=== PATIENT | male | born 2000 | race African-American/Black ===

== ENCOUNTER → 2023-12-03 | Emergency (ER) | payer OTHER ==
[~2023-12-03] MED LIST: KETOROLAC 30 MG/ML INJ ONE; NA CHLORIDE 0.9% 1,000 ML ONE
--- NOTE | 2023-12-03 13:26 | RAD REPORT ---
EXAM DESCRIPTION: CT - Stone Protocol - 12/03/2023 1:15 pm CLINICAL HISTORY: Flank pain. FLANK PAIN COMPARISON: No comparisons TECHNIQUE: Axial images were obtained without oral or IV contrast. Lack of contrast limits solid org an and vascular assessment. The chmoa-wc-tzuh spans the entirety of the system partially obscuring uppermost abdomen and lung bases. Coronal reformatted images were obtained and reviewed. All CT scans are performed using dose optimization technique as appropriate and may include automated exposure control or mA/KV adjustment according to patient size. FINDINGS: The lower lung santos are clear. Imaged portions of the liver and spleen show no suspicious findings on non-contrast imaging. The panc reas and adrenal glands are normal. No pathologic lymphadenopathy in the abdomen or pelvis. No urinary tract stones or obstructive uropathy. No bowel obstruction, free air, free fluid or abscess. Normal appendix noted. No significant bony abnormality. IMPRESSION: No urinary tract stones or obstructive uropathy.
[2023-12-03 13:35] LABS: Absolute Lymphocytes (CBC) 1.6 K/uL (0.7-4.9); Lymphocytes % 22.8 % (15.3-44.8); MCV 78.6 fL (80-100); MPV 8.5 fL (7.6-11.3); Platelets 306 thou/uL (152-406); RBC Red Blood Cell Count 4.96 M/uL (4.33-5.43); Specific Gravity 1.016 (1.005-1.030); Urine Bilirubin NEGATIVE (Negative); Urine Blood Negative (Negative); Urine Clarity Clear (Clear); Urine Color Light-Yellow (Yellow); Urine Glucose NEGATIVE (Negative); Urine Protein NEGATIVE (Negative); Urine Urobilinogen Normal (Normal); Urine pH 6.5 (5.0-7.0)
[2023-12-03 14:01] LABS: Albumin 3.6 g/dL (3.4-5.0); Bilirubin Total 0.4 mg/dL (0.2-1.0); Potassium 4.1 mEq/L (3.5-5.1); Protein, Total 8.6 g/dL (6.4-8.2)
--- NOTE | 2023-12-03 14:24 | ER ---
Nurse's Notes [facility] Name: Abhinav Metzger Age: 22 yrs Sex: Male : 2000 Arrival Date: 12/03/2023 Time: 12:48 Bed 10 Private MD: Diagnosis: Left flank pain Presentation: 12/03 13:03 Chief complaint: Patient states: left sided pain x1 week. pt denies injury or urinary as6 symptoms. Coronavirus screen: At this time, the client does not indicate any symptoms associated with coronavirus-19. Ebola Screen: No symptoms or risks identified at this time. Initial Sepsis Screen: Does the patient meet any 2 criteria? No. Patient's initial sepsis screen is negative. Does the patient have a suspected source of infection? No. Patient's initial sepsis screen is negative. Risk Assessment: Do you want to hurt yourself or someone else? Patient reports no desire to harm self or others. Onset of symptoms was November 26, 2023. 13:03 Acuity: STEPHANIE 3 as6 13:03 Method Of Arrival: Ambulatory as6 Triage Assessment: 13:06 General: Appears in no apparent distress. uncomfortable, Behavior is calm, cooperative. as6 Pain: Complains of pain in left flank. Historical: - Allergies: 13:05 No Known Allergies; as6 - PMHx: 13:05 Diabetes mellitus; Hypercholesterolemia; as6 - PSHx: 13:05 None; as6 - Immunization history:: Adult Immunizations up to date. - Social history:: Smoking status: Patient denies any tobacco usage or history of. Screenin:31 [facility] ED Fall Risk Assessment (Adult) History of falling in the last 3 months, bp including since admission No falls in past 3 months (0 pts). Abuse screen: Denies threats or abuse. Denies injuries from another. Nutritional screening: No deficits noted. Tuberculosis screening: No symptoms or risk factors identified. Assessment: 14:36 Reassessment: PT DC HOME AMBULATORY WITH FAMILY. bp Vital Signs: 13:03 BP 129 / 85; Pulse 94; Resp 18 S; Temp 97.5(TE); Pulse Ox 100% on R/A; Weight 161.93 kg as6 (R); Height 5 ft. 8 in. (R); Pain 8/10; 13:03 Body Mass Index 54.28 (161.93 kg, 172.72 cm) as6 13:03 Pain Scale: Adult as6 ED Course: 12:51 Patient arrived in ED. ld1 12:55 Lolly Amado [facility]-C [facility]. kb 12:55 Moises Calvert MD is Attending Physician. kb 13:05 Triage completed. as6 13:06 Arm band placed on. as6 13:13 Peewee Corcoran, RN is Primary Nurse. bp 13:15 CT Stone Protocol In Process Unspecified. EDMS 13:31 Patient has correct armband on for positive identification. bp 13:31 Inserted saline lock: 22 gauge in right antecubital area, using aseptic technique. bp Blood collected. 14:36 No provider procedures requiring assistance completed. IV discontinued. bp Administered Medications: 13:31 Drug: NS 0.9% IV 1000 ml IV at 1 bolus Per protocol; 1000 mL bolus Route: IV; Rate: 1 bp bolus; Site: right antecubital; 14:39 Follow up: IV Status: Completed infusion; IV Intake: 1000ml bp 13:31 Drug: TORadol - Ketorolac IVP 15 mg IVP once Route: IVP; Site: right antecubital; bp 14:39 Follow up: Response: No adverse reaction bp Medication: 14:36 VIS not applicable for this client. bp Intake: 14:39 IV: 1000ml; Total: 1000ml. bp Outcome: 14:24 Discharge ordered by MD. kb 14:36 Discharged to home ambulatory, with family, bp 14:36 Condition: stable 14:36 Discharge instructions given to patient, family, Instructed on discharge instructions, follow up and referral plans. Demonstrated understanding of instructions, follow-up care, 14:39 Patient left the ED. bp Signatures: Dispatcher [employer] EDNY Lolly Amado FNP-C FNP-Ckb Peltier, Brian, RN RN bp Dee Dee Falcon RN RN ld1 Jacobo Egan RN RN as6
--- NOTE | 2023-12-03 14:24 | EDPHYS ---
Physician Documentation [facility] Name: Abhinav Metzger Age: 22 yrs Sex: Male : 2000 Arrival Date: 12/03/2023 Time: 12:48 Bed 10 Private MD: ED Physician Moises Calvert HPI: 12/03 13:20 This 22 yrs old Black Male presents to ER via Ambulatory with complaints of Flank Pain. kb 13:20 Patient is a 22-year-old female with a history of diabetes and high cholesterol who kb presents for left mid back/flank pain that started 1 week ago. Denies any urinary symptoms, nausea, vomiting, diarrhea, abdominal pain, fever. Was seen by PCP yesterday and diagnosed with a pulled muscle. Mother states that patient was crying in pain today so she wanted to get his kidneys checked and make sure there is nothing else going on. Patient was also diagnosed with diabetes yesterday and started on Jardiance which has not been picked up from the pharmacy yet.. Historical: - Allergies: 13:05 No Known Allergies; as6 - PMHx: 13:05 Diabetes mellitus; Hypercholesterolemia; as6 - PSHx: 13:05 None; as6 - Immunization history:: Adult Immunizations up to date. - Social history:: Smoking status: Patient denies any tobacco usage or history of. ROS: 13:17 Constitutional: Negative for fever, chills, and weight loss, kb 13:17 Back: Positive for pain at rest, pain with movement, of the right mid back, 13:17 All other systems are negative, Exam: 13:19 Constitutional: This is a well developed, well nourished patient who is awake, alert, kb and in no acute distress. Head/Face: Normocephalic, atraumatic. ENT: Moist Mucous membranes Cardiovascular: Regular rate Respiratory: Respirations even and unlabored. No increased work of breathing. Talking in full sentences Abdomen/GI: Soft, non-tender. No distention Back: No spinal tenderness. No costovertebral tenderness. Full range of motion. Skin: Warm, dry with normal turgor. Normal color. MS/ Extremity: Pulses equal, no cyanosis. Neurovascular intact. Full, normal range of motion. Neuro: Awake and alert, GCS 15, oriented to person, place, time, and situation. Moves all extremities. Normal gait. Vital Signs: 13:03 BP 129 / 85; Pulse 94; Resp 18 S; Temp 97.5(TE); Pulse Ox 100% on R/A; Weight 161.93 kg as6 (R); Height 5 ft. 8 in. (R); Pain 8/10; 13:03 Body Mass Index 54.28 (161.93 kg, 172.72 cm) as6 13:03 Pain Scale: Adult as6 MDM: 12:56 Patient medically screened. kb 13:21 Differential diagnosis: nephrolithiasis, UTI, muscle strain. Data reviewed: vital kb signs, nurses notes. Historians other than the Patient: Parent: mother. 14:23 Counseling: I had a detailed discussion with the patient and/or guardian regarding the kb historical points, exam findings, and any diagnostic results supporting the discharge/admit diagnosis, lab results, radiology results, the need for outpatient follow up, a family practitioner, to return to the emergency department if symptoms worsen or persist or if there are any questions or concerns that arise at home. 12/03 13:05 Order name: CBC with Diff; Complete Time: 13:38 kb 12/03 13:05 Order name: CMP; Complete Time: 14:16 kb 12/03 13:05 Order name: Lipase; Complete Time: 14:16 kb 12/03 13:05 Order name: Urinalysis w/ reflexes; Complete Time: 13:38 kb 14 13:05 Order name: CT Stone Protocol; Complete Time: 13:27 kb 12/03 13:05 Order name: IV Saline Lock; Complete Time: 13:31 kb 12/03 13:05 Order name: Labs collected and sent; Complete Time: 13:30 kb Administered Medications: 13:31 Drug: NS 0.9% IV 1000 ml IV at 1 bolus Per protocol; 1000 mL bolus Route: IV; Rate: 1 bp bolus; Site: right antecubital; 14:39 Follow up: IV Status: Completed infusion; IV Intake: 1000ml bp 13:31 Drug: TORadol - Ketorolac IVP 15 mg IVP once Route: IVP; Site: right antecubital; bp 14:39 Follow up: Response: No adverse reaction bp Disposition: 17:31 Co-signature as Attending Physician, Moises Calvert MD I reviewed the patient's care rn provided by the Advanced Practice Provider and agree with the diagnosis and treatment plan. Disposition Summary: 12/03/23 14:24 Discharge Ordered Notes: Location: Home kb Condition: Stable kb Diagnosis - Left flank pain kb Followup: kb - With: Emergency Department - When: As needed - Reason: Worsening of condition Followup: kb - With: Private Physician - When: 2 - 3 days - Reason: Recheck today's complaints, Continuance of care, Re-evaluation by your physician Discharge Instructions: - Discharge Summary Sheet kb - Acute Back Pain, Adult kb - Muscle Strain, [id number] kb - Flank Pain, Adult, [id number] kb Forms: - Medication Reconciliation Form kb - Thank You Letter kb - Antibiotic Education kb - Prescription Opioid Use kb - Patient Portal Instructions kb - Leadership Thank You Letter kb Signatures: Dispatcher [employer] Lolly [place], SURGICAL PRODUCT SALES CONSULTANT-C SURGICAL PRODUCT SALES CONSULTANT-Reyesb Moises Calvert MD MD rn Peltier, Brian, RN RN bp Slawson, Ashby, RN RN as6
[2023-12-03 15:41] VITALS: BP 129/85; TEMP 97.5; O2SAT 100
== END ==
LOC: ER 12:48
DX: R10.9 Unspecified abdominal pain (principal); E11.9 Type 2 diabetes mellitus without complications
CPT/HCPCS: 85025; 36415; 81003; 83690; 80053; 76377; 74176; J7030

== ENCOUNTER 2025-01-06 15:57 | Emergency (ER) | payer OTHER ==
--- NOTE | 2025-01-06 17:34 | EDPHYS ---
Physician Documentation [facility] Name: Abhinav Metzger Age: 24 yrs Sex: Male : 2000 Arrival Date: 01/06/2025 Time: 15:57 Bed DIS5 Private MD: ED Physician Javed Rodriguez HPI: 01/06 17:39 This 24 yrs old Black Male presents to ER via Ambulatory with complaints of Arm Burn. ec2 17:39 Patient arrives today for burn to the left wrist. Patient states that he burned himself ec2 on a grill. No other injuries or concerns, no blisters. Is having some pain discomfort at the area, has some seepage as well.. Historical: - Allergies: 17:00 No Known Allergies; iw - PMHx: 17:00 diabetes mellitus; Hypercholesterolemia; iw ROS: 17:39 Constitutional: as per hpi ec2 Exam: 17:39 Constitutional: GEN: NAD Head: atraumatic Eyes: EOMI Ears: External ears are ec2 normal. CV: regular rate LUNGS: no respiratory distress ABD: non-distended SKIN: Left inner wrist with superficial partial-thickness burn with scant seepage appreciated. MSK: no evidence of trauma Vital Signs: 18:35 Pulse 88; Resp 20 S; Temp 98(TE); Pulse Ox 99% on R/A; aa5 MDM: 17:08 Medical Screening Exam initiated ec2 17:39 Data reviewed: vital signs, nurses notes. ED course: Patient arrives today for a burn ec2 to the left wrist. Examination as above. Will prescribe the patient bacitracin as needed. Will discharge home. Return precautions given.. Administered Medications: 18:36 Not Given (not available ): bacitracinointment (500 unit/g) 1 application Topical once aa5 18:36 Drug: Xcrxpxfu-Calwhxhmjj-Rgautxzxg Topical Ointment 1 application Topical once {Note: aa5 to burn.} Route: Topical; Site: affected area; Disposition Summary: 01/06/25 17:34 Discharge Ordered Notes: Location: Home ec2 Condition: Stable ec2 Diagnosis - Superficial Parital Thickness Burn ec2 Followup: ec2 - With: Private Physician - When: - Reason: Re-evaluation by your physician Discharge Instructions: - Discharge Summary Sheet ec2 - Burn Care, Adult, Cblq-ls-Nums ec2 Forms: - Medication Reconciliation Form ec2 - Antibiotic Education ec2 - Prescription Opioid Use ec2 - Patient Portal Instructions ec2 - Leadership Thank You Letter ec2 Prescriptions: - bacitracin 500 unit/gram Topical Packet - apply 1 application TOPICAL route 2 times per day; 14 application; Refills: 0, ec2 Product Selection Permitted Signatures: Nicolette Cameron RN RN iw Jayde Real RN RN aa5 Javed Rodriguez MD MD ec2
--- NOTE | 2025-01-06 17:34 | ER ---
Nurse's Notes [facility] Name: Abhinav Metzger Age: 24 yrs Sex: Male : 2000 Arrival Date: 01/06/2025 Time: 15:57 Bed DIS5 Private MD: Diagnosis: Superficial Parital Thickness Burn Presentation: 01/06 17:00 Chief complaint: Patient states: he burned his left wrist on a hot grill last night at iw work. Coronavirus screen: At this time, the client does not indicate any symptoms associated with coronavirus-19. Ebola Screen: No symptoms or risks identified at this time. Initial Sepsis Screen: Does the patient meet any 2 criteria? No. Patient's initial sepsis screen is negative. Does the patient have a suspected source of infection? No. Patient's initial sepsis screen is negative. Risk Assessment: Do you want to hurt yourself or someone else? Patient reports no desire to harm self or others. Onset of symptoms was January 05, 2025. 17:00 Method Of Arrival: Ambulatory iw 17:00 Acuity: STEPHANIE 5 iw Historical: - Allergies: 17:00 No Known Allergies; iw - PMHx: 17:00 diabetes mellitus; Hypercholesterolemia; iw Assessment: 18:36 Reassessment: Burn to left wrist cleaned with saline and dressed with Neosporin and aa5 gauze. . 18:37 Neuro: Level of Consciousness is awake, alert, obeys commands, Oriented to person, aa5 place, time, situation. Respiratory: Airway is patent Respiratory effort is even, unlabored, Respiratory pattern is regular, symmetrical. Derm: Skin is dry, Skin is normal, Skin temperature is warm. Vital Signs: 18:35 Pulse 88; Resp 20 S; Temp 98(TE); Pulse Ox 99% on R/A; aa5 ED Course: 16:05 Patient arrived in ED. cj3 16:08 Javed Rodriguez MD is Attending Physician. ec2 17:00 Triage completed. iw 18:37 No provider procedures requiring assistance completed. Patient did not have IV access aa5 during this emergency room visit. Administered Medications: 18:36 Not Given (not available ): bacitracinointment (500 unit/g) 1 application Topical once aa5 18:36 Drug: Kcdlilom-Tzqzyntlse-Gtwokfvto Topical Ointment 1 application Topical once {Note: aa5 to burn.} Route: Topical; Site: affected area; Outcome: 17:34 Discharge ordered by . leah 18:37 Discharged to home ambulatory, with family, aa5 18:37 Condition: stable 18:37 Discharge instructions given to patient, Instructed on discharge instructions, follow up and referral plans. medication usage, Demonstrated understanding of instructions, follow-up care, medications, Prescriptions given X 1, 18:38 Patient left the ED. aa5 Signatures: Nicolette Cameron RN RN iw Calderon, Audri, RN RN aa5 Javed Rodriguez MD MD ec2 Carol Pugh cj3
== END 2025-01-06 18:38 | disposition home or self-care (01) ==
LOC: ER 15:57
DX: T23.272A Burn of second degree of left wrist, initial encounter (principal)
CPT/HCPCS: 99283